=== PATIENT | male | born 1980 | race Caucasian/White ===

== ENCOUNTER 2016-06-09 12:43 | Emergency (ER) | payer SELFPAY ==
[2016-06-09 12:56] VITALS: BP 123/72
--- NOTE | 2016-06-09 13:04 | ER Document Report ---
ED Medical Screen (RME) - General Stated Complaint: COUGH Notes: 36 yo male c/o cough, chest tightness with cough x 1 1/2 weeks. productive. no fever. + chills. + dyspnea on exertion. + hx/o pneumonia. + smoker TRAVEL OUTSIDE OF THE [place] IN LAST 30 DAYS: No - Related Data Allergies/Adverse Reactions: No Known Allergies Allergy (Verified 06/09/16 13:01) Past Medical History Psychiatric Medical History: Reports: Hx Depression - during his divorce Past Surgical History: Reports: Hx Orthopedic Surgery - R knee - Immunizations Hx Diphtheria, Pertussis, Tetanus Vaccination: Yes Physical Exam - Vital signs Vitals: Temp Pulse Resp BP Pulse Ox 98.4 F 94 18 123/72 98 06/09/16 12:55 06/09/16 12:55 06/09/16 12:55 06/09/16 12:55 06/09/16 12:55 Course - Vital Signs Vital signs: Temp Pulse Resp BP Pulse Ox 98.4 F 94 18 123/72 98 06/09/16 12:55 06/09/16 12:55 06/09/16 12:55 06/09/16 12:55 06/09/16 12:55
[2016-06-09 13:34] LABS: ABSOLUTE EOSINOPHILS # (AUTO) 0.1 10^3/uL (0.0-0.6); ABSOLUTE LYMPHOCYTES (AUTO) 1.5 10^3/uL (0.5-4.7); ABSOLUTE MONOCYTES (AUTO) 0.6 10^3/uL (0.1-1.4); ABSOLUTE NEUT (AUTO) 7.1 10^3/uL (1.7-8.2); BASOPHILS % (AUTO) 0.5 % (0-2); HEMATOCRIT 47.1 % (37.9-51.0); HEMOGLOBIN 15.7 g/dL (13.5-17.0); LYMPHOCYTES % (AUTO) 16.1 % (13-45); MEAN CORPUSCULAR HEMOGLOBIN 30.7 pg (27.0-33.4); MEAN CORPUSCULAR HGB CONC 33.4 g/dL (32.0-36.0); MEAN CORPUSCULAR VOLUME 92 fl (80-97); MONOCYTES % (AUTO) 6.9 % (3-13); RED BLOOD COUNT 5.13 10^6/uL (4.35-5.55); RED CELL DISTRIBUTION WIDTH 13.5 % (11.5-14.0); SEGMENTED NEUTROPHILS % (AUTO) 75.5 % (42-78); WHITE BLOOD COUNT 9.3 10^3/uL (4.0-10.5)
[2016-06-09 13:54] LABS: ALANINE AMINOTRANSFERASE 25 U/L (21-72); ALBUMIN 4.6 g/dL (3.5-5.0); ALKALINE PHOSPHATASE 79 U/L (38-126); ANION GAP 11 (5-19); ASPARTATE AMINO TRANSFERASE 23 U/L (17-59); BILIRUBIN,DIRECT 0.1 mg/dL (0.0-0.4); BILIRUBIN,TOTAL 0.8 mg/dL (0.2-1.3); BLOOD UREA NITROGEN 11 mg/dL (7-20); CALCIUM 10.4 mg/dL (8.4-10.2); CARBON DIOXIDE 30 mmol/L (22-30); CHLORIDE 106 mmol/L (98-107); CREATININE RESULT 0.88 mg/dL (0.52-1.25); GLUCOSE 91 mg/dL (75-110); POTASSIUM 4.3 mmol/L (3.6-5.0); SODIUM 146.6 mmol/L (137-145); TOTAL PROTEIN 7.6 g/dL (6.3-8.2)
--- NOTE | 2016-06-09 16:47 | ER Document Report ---
ED Respiratory Problem - General Mode of Arrival: Ambulatory Information source: Patient TRAVEL OUTSIDE OF THE [place] IN LAST 30 DAYS: No - HPI Patient complains to provider of: Cough Onset: Other - 1.5 weeks Associated symptoms: Other - See above <PRIYA WHITING - Last Filed: 06/09/16 16:51> <SWATI MARRUFO - Last Filed: 06/16/16 00:56> - General Chief Complaint: Cough Stated Complaint: COUGH Notes: Patient is a 36 year old male, with a past medical history including bronchitis and pneumonia, who presents to the emergency department complaining of a cough onset 1.5 weeks ago. Patient reports that this cough feels very similar to his past bronchitis and describes the cough as productive with brown/yellow sputum. Patient also complains of chills. Patient denies fever. Patient states he is in [place] for some funerals and is visiting from [place]. Patient states that he smokes about a 1/2 pack per day but that he has been smoking more on this trip, patient also uses medical marijuana for chronic pain. Patient reports he received a flu shot in December. (PRIYA WHITING) - Related Data Allergies/Adverse Reactions: No Known Allergies Allergy (Verified 06/09/16 13:01) Past Medical History - General Information source: Patient - Social History Smoking Status: Current Every Day Smoker Cigarette use (# per day): Yes - 1/2 ppd Chew tobacco use (# tins/day): No Frequency of alcohol use: Social Drug Abuse: Marijuana Family History: Reviewed & Not Pertinent Patient has suicidal ideation: No Patient has homicidal ideation: No Pulmonary Medical History: Reports: Hx Bronchitis, Hx Pneumonia Psychiatric Medical History: Reports: Hx Depression - during his divorce Past Surgical History: Reports: Hx Orthopedic Surgery - R knee - Immunizations Hx Diphtheria, Pertussis, Tetanus Vaccination: Yes <PRIYA WHITING - Last Filed: 06/09/16 16:51> Review of Systems - Review of Systems Constitutional: See HPI, Chills. denies: Fever EENT: No symptoms reported Cardiovascular: No symptoms reported Respiratory: See HPI, Cough, Sputum Gastrointestinal: No symptoms reported Genitourinary: No symptoms reported Male Genitourinary: No symptoms reported Musculoskeletal: No symptoms reported Skin: No symptoms reported Hematologic/Lymphatic: No symptoms reported Neurological/Psychological: No symptoms reported -: Yes All other systems reviewed and negative <PRIYA WHITING - Last Filed: 06/09/16 16:51> Physical Exam - Vital signs Interpretation: Normal - General General appearance: Appears well, Alert - HEENT Head: Normocephalic, Atraumatic - Respiratory Respiratory status: No respiratory distress Chest status: Nontender Breath sounds: Rhonchi - some, Other - Coarse. No: Wheezing Chest palpation: Normal - Cardiovascular Rhythm: Regular Heart sounds: Normal auscultation Murmur: No - Back Back: Normal, Nontender - Extremities General upper extremity: Normal inspection General lower extremity: Normal inspection - Neurological Neuro grossly intact: Yes Cognition: Normal Orientation: AAOx4 [place] Coma Scale Eye Opening: Spontaneous [place] Coma Scale Verbal: Oriented [place] Coma Scale Motor: Obeys Commands [place] Coma Scale Total: 15 Speech: Normal - Psychological Associated symptoms: Normal affect, Normal mood - Skin Skin Temperature: Warm Skin Moisture: Dry Skin Color: Normal <PRIYA WHITING - Last Filed: 06/09/16 16:51> Course - Laboratory Result Diagrams: 06/09/16 13:15 06/09/16 13:15 <PRIYA WHITING - Last Filed: 06/09/16 16:51> - Laboratory Result Diagrams: 06/09/16 13:15 06/09/16 13:15 <SWATI MARRUFO - Last Filed: 06/16/16 00:56> - Vital Signs Vital signs: Temp Pulse Resp BP Pulse Ox 98.4 F 94 18 123/72 98 06/09/16 12:55 06/09/16 12:55 06/09/16 12:55 06/09/16 12:55 06/09/16 12:55 - Laboratory Laboratory results interpreted by me: 06/09/16 13:15 Sodium 146.6 H Calcium 10.4 H Discharge <PRIYA WHITING - Last Filed: 06/09/16 16:51> <SWATI MARRUFO - Last Filed: 06/16/16 00:56> - Discharge Clinical Impression: Bronchitis Condition: Stable Disposition: HOME, SELF-CARE Additional Instructions: Bronchitis: You have acute bronchitis. This disease is an infection or inflammation of the air passageways in your lungs. Symptoms usually include cough, low grade fever, shortness of breath, and wheezing. The cough usually persists for a couple of weeks. Most cases of bronchitis get better without antibiotics. We prescribe antibiotics when we believe bacteria are damaging your airways, or if there's high risk the bronchitis will worsen into pneumonia. Increase your fluid intake. A cool mist humidifier may make your lungs more comfortable. An expectorant (cough medicine that loosens phlegm) can help. If you smoke, STOP!!! Recovery from bronchitis can be somewhat slow, but you should see improvement within a day or two. Repeated episodes of bronchitis may result in lung damage -- for example, chronic bronchitis, recurrent pneumonias, or emphysema. Call the doctor if you develop increasing fever, shortness of breath, chest pain, bloody sputum, or otherwise worsen. If you have not improved at all after several days, contact the physician. TAKE THE MEDICATIONS PRESCRIBED. DRINK PLENTY OF FLUIDS. TRY ROBITUSSIN-DM FOR COUGH. FOLLOW UP WITH A LOCAL MEDICAL DOCTOR IF NOT IMPROVING. RETURN TO THE EMERGENCY ROOM IF ANY NEW OR WORSENING SYMPTOMS. Prescriptions: Azithromycin [Zithromax 250 mg Tablet] 250 mg PO ASDIR PRN #6 tablet PRN Reason: Scribe Attestation: 06/09/16 16:49 I personally performed the services described in the documentation, reviewed and edited the documentation which was dictated to the scribe in my presence, and it accurately records my words and actions. (SWATI MARRUFO) Josephineibe Documentation - Scribe Written by Cici:: cici Francisco, 06/09/16, [id number] acting as scribe for :: Luana <PRIYA WHITING - Last Filed: 06/09/16 16:51>
== END 2016-06-09 17:10 | disposition home or self-care (01) ==
LOC: ER 12:43
DX: J40 Bronchitis, not specified as acute or chronic (principal); R05 Cough; R68.83 Chills (without fever); G89.29 Other chronic pain; F17.210 Nicotine dependence, cigarettes, uncomplicated; Z87.01 Personal history of pneumonia (recurrent)
CPT/HCPCS: 36415; 71020; 80053; 85025; 99283